=== PATIENT | male | born 1970 | race Caucasian/White ===

== ENCOUNTER 2016-06-30 13:04 | Inpatient (IN) | payer OTHER ==
[~2016-06-30] VITALS: Ht 177.8 cm; Wt 131.2 kg
--- NOTE | ~2016-06-30 | CST ---
Cardiac Perfusion Imaging Demographics Patient Name ANDIE Friedman JR Gender Male Patient Number [id number] Race Visit Number [id number] Ethnicity [employer] Room Number 423 Accession Number [id number] Height 70 inches Date of 1970 Weight 287 pounds Age 46 year(s) BSA 2.43 m Referring Physician Nighat Lopez MD BMI 41.18 kg/m Interpreting [facility] Date of study 07/01/2016 Physician King Bear Calvin MD Supervising MD/MLP Danelle NGO Technologist Sridevi Thorne MD Ordering Physician Nighat Lopez MD Stress Emma Meyers engine test cell technician Stress ECG Reading [facility] Nurse Kandy Verduzco Physician King Bear Michel The procedure was explained in detail to the patient. Risks, complications and alternative treatments were reviewed. Written consent was obtained. Medications Reviewed with Patient prior to Procedure. Procedure Procedure Type: Nuclear Stress Test:Pharmacological, Lexiscan Procedure Start time: 07/01/2016 08:00 Indications: Chest pain, Hyperlipidemia, Hypertension and Diabetes. Risk Factors The patient risk factors include:Current/Recent(w/in 1 year) tobacco use, hypercholesterolemia, treated hypertension, family history of premature CAD, diet treated diabetes mellitus and dyslipidemia. Conclusions Summary Perfusion Images: The overall quality of the study is good. Left ventricular cavity is noted to be normal on the stress and rest studies. There is no evidence of abnormal lung activity. The right ventricle is not visualized and cannot be assessed. Stress SPECT images and Rest SPECT images demonstrate homogenous tracer distribution throughout the myocardium except for a decrease in uptake in the area involving the inferior wall consistent with diaphragmatic attenuation. Gated SPECT imaging reveals normal myocardial thickening and wall motion. The left ventricular ejection fraction was calculated to be 56%. Impression ECG portion of stress test is clinically negative for ischemia by diagnostic criteria. Myocardial perfusion imaging is normal. The inferior wall matched defect is consistent with diaphragm attenuation. Overall left ventricular systolic function was normal without regional wall motion abnormalities. There are no previous studies for comparison. . Stress Protocols Resting ECG Normal sinus rhythm. Resting HR:71 bpm Resting BP:144/100 mmHg Stress Protocol:Pharmacologic Peak BP:144/100 mmHg Predicted HR: 175 bpm Test duration: 06:00 min Reason for termination:Infusion complete ECG Findings Normal sinus rhythm. Symptoms Shortness of breath. Symptoms resolved with rest. Complications Procedure complication: None. Stress Interpretation Appropriate hemodynamic response to Lexiscan. No significant ST-T wave changes with Lexiscan. ECG portion is negative for ischemia by diagnostic criteria. Imaging Results Summed scores - Summed stress score: 0 - Summed rest score: 0 - Summed difference score: 0 Stress ejection Ejection fraction:56 % EDV :143 ml ESV :63 ml Stroke volume :80 ml LV mass :149 gr Imaging Protocols Rest Stress Isotope:Tc99m Myoview IV Isotope: Tc99m Myoview IV Isotope dose:10.9 mCi Isotope dose:31.6 mCi Date:07/01/2016 06:30 Date:07/01/2016 08:00 Technique: SPECT Technique: Gated Supine SPECT Supine IV remains in place after procedure. Scan Time:45-60 minutes post Scan Time:45-60 minutes post injection injection Procedure Medications - Regadenoson (Lexiscan) 0.4 mg IV over 10-15 sec. I.V. 0.4 mg. Medications administered per verbal order and read back to physician prior to administration. Medical History Admission Data Admission date: 06/30/2016 Admission Time: 14:48 Hospital Status: Inpatient. Signatures
[2016-07-02] MEDS ORDERED: MULTIVITAMINS1 EAC1 PO (06:11)
[2016-07-02] MEDS ORDERED: ASPIRIN EC81 MG PO (06:11)
[2016-07-02] MEDS ORDERED: COREG DPS12.5 MG PO (06:11)
[2016-07-02] MEDS ORDERED: ZOCOR DPS40 MG PO (06:12)
[2016-07-02] MEDS ORDERED: PRILOSEC DPS20 MG PO (06:12)
[2016-07-02] MEDS ORDERED: AMLODIPINE BESYL5 MG PO (06:12)
--- NOTE | 2016-07-04 16:13 | DS ---
ADMIT: 06/30/2016 RM/LOC: 423 [facility] MR#: [id number] [address] [facility] [address] [place], [place] [address] RUBINA CHAVES [address] [place] [id number] Discharge Summary SEX: M AGE: 46 : 1970 ADMISSION DATE: 06/30/2016 DISCHARGE DATE: 07/01/2016 CONSULTATIONS: Dr. Mcclendon. PROCEDURES: Functional cardiac exam. Negative stress test. No evidence of inducible ischemia. DIAGNOSES: 1. Noncardiac chest pain, resolved. 2. Chronic kidney disease stage 4. 3. Dyslipidemia. 4. Hypertension. 5. Type 2 diabetes mellitus. 6. Morbid obesity. 7. Gastroesophageal reflux disease. REASON FOR ADMISSION: Please H and P. However briefly, admitted for chest pain. HOSPITAL COURSE: Admitted to the service of [facility] under the care of myself, Piyush Disla MD. Receives goal-directed therapy for chest pain. Receives Cardiology consultation for a functional evaluation which was unremarkable. He does have an ultrasound of his kidneys consistent with chronic kidney disease, likely secondary to hypertension and hyperlipidemia. Diabetes is actually at goal at 6.5. He declines any further intervention for his diabetes at this time. I offered him referral to group underwriter for management of his chronic kidney disease. He declines this as well. Offered him follow up. He wishes to follow up with [facility]. He thinks that he will consider seeing them. I do express to him the very important nature of his followup. He has kidney disease, he has got diabetes, he has got hypertension and likely does have coronary artery disease, however nothing significant noted on functional studies today. But, I do encourage him to have aggressive intervention for his disease as with a creatinine of approximately 3 at age 46 I do have real concerns for his longevity. He does express that he understands this and he will consider following up at [facility] as that is where he wishes to establish his care. He likes them and has read about them and that is what he wants. He does decline Nephrology, declines any intervention for his diabetes at this time. He does agree to go on a statin drug. I recommend that he does have followup laboratories in 6-8 weeks time to follow up his lipids as well as the tolerance of the statin. He will discharge to home. He will follow up with [facility] next available. Again, very strongly encouraged him that he needs to aggressively treat his disease. DISPOSITION: Home. DISCHARGE CONDITION: Stable. ADMIT: 06/30/2016 RM/LOC: 423 [facility] MR#: [id number] [address] [facility] [address] [place] [id number] [place] [address] Discharge Summary SEX: M AGE: 46 : 1970 DISCHARGE MEDICATIONS: See medication reconciliation, reviewed and accurate. DISCHARGE INSTRUCTIONS: Discharged to home. Declines followup in my clinic. He will follow up in [facility]. He declines nephrology referral. He will agree to start a statin drug but agrees that he must have followup laboratories. I discussed the plan with the patient, expressed understanding, was in agreement, and had no further questions. Thirty minutes spent on discharge activities of this patient. Piyush Disla MD/ reno JOB #: [id number] CC: Piyush Disla MD, Attending Physician Piyush Disla MD, Family Physician . [facility]
--- NOTE | 2016-07-04 16:13 | HP ---
ADMIT: 06/30/2016 RM/LOC: 423 [facility] MR#: [id number] ACC#: [id number] [address] [facility] [address] [place] [id number] [address] [place] [address] History and Physical SEX: M AGE: 46 : 1970 DATE OF SERVICE: CHIEF COMPLAINT: Chest pain. HISTORY OF PRESENT ILLNESS: He has been having chest pain for approximately one week. Worse today. Resolved with Maalox in the ER. Has a history of hypertension as well as does have a history of hyperlipidemia and diabetes. He is currently taking Coreg and amlodipine. He gets his care at [facility]. He is wishing to establish with [facility], however. He came to the ER with his . Did receive aspirin and appropriate interventions. Initial laboratories were negative. He has requested to be admitted for observation. Evaluated him at his bedside in room 8. He has no chest pain, shortness of breath, nausea, or vomiting. No abdominal pain. He does not drink, smoke, or do drugs. He does chew a bit. Positive family history for diabetes in the sister. Dad with hypertension as well as mom with diabetes and hypertension. No children. States he had a stress test in the past, however, not able to locate this. 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 PAST MEDICAL HISTORY: 1. Hypertension. 2. Hyperlipidemia. 3. Type 2 diabetes mellitus. MEDICATIONS: 1. Coreg. 2. Amlodipine. ALLERGIES: CODEINE. FAMILY HISTORY: Father, hypertension. Mother, hypertension and diabetes. Sister with diabetes. No children. SOCIAL HISTORY: He does not drink, smoke, or do drugs. 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 He does have a history of hypertension. He is somewhat noncompliant with his medications. He recently did obtain insurance and wishes to establish with a local [facility]. He also does chew tobacco, but he is overall pretty happy jesse. REVIEW OF SYSTEMS: Complete review of systems reviewed per HPI. PHYSICAL EXAMINATION: VITAL SIGNS: Blood pressure is 141/84, pulse is 79, respiratory rate is 18, and temperature is 97.3. He is on room air. GENERAL: Alert and oriented x3. No acute distress. HEENT: Normocephalic, atraumatic. Extraocular movements intact. Pupils equal, round. No nasal discharge. NECK: Supple. ADMIT: 06/30/2016 RM/LOC: 423 [facility] MR#: [id number] [address] [address] [facility] [place] [address] History and Physical SEX: M AGE: 46 : 1970 HEART: Regular rhythm and rate. LUNGS: Clear to auscultation bilaterally. ABDOMEN: Soft, nontender, and nondistended. EXTREMITIES: No clubbing, cyanosis, or edema. IMAGING: EKG, sinus rhythm, no acute ST-segment changes. LABORATORY DATA: Chest x-ray, normal chest. Hemoglobin is 13.3, white blood cells 10.5, and platelets 176. D-dimer 0.66. Sodium is 139, potassium 4.6, chloride is 108, bicarb is 20, BUN is 35, creatinine is 3.5, glucose is 85, calcium is 8.2, total bilirubin is 0.3, total protein is 7, albumin is 3.1, alkaline phosphatase is 98, AST is 45, ALT is 61, LDH is 135, and Mag is 1.6. ASSESSMENT: 1. Chest pain. 2. Hypertension. 3. Hyperlipidemia. 4. Hypomagnesemia. 5. Acute renal failure. We will go ahead and admit him to my medical service to an inpatient status. We will maintain him on telemetry. We will start him on some gentle or some IV fluid resuscitation for acute renal failure. Obtain a renal ultrasound to rule out an obstructive uropathy. Replace his magnesium. He was given aspirin. Maintain him on his Coreg and amlodipine and I will dose him a dose of simvastatin now. I will request Cardiology do a treadmill functional evaluation of him in the morning. I will obtain a fasting lipids as well as a hemoglobin A1c. I will place him on the subcu insulin with his history of diabetes. He will be maintained on SCDs and DAVON hose right now, and he will have trending cardiac enzymes and wishes to be a full code. I discussed the plan with the patient, expressed understanding with agreement, had no further questions. Piyush Disla MD/ martin JOB #: [id number] CC: Piyush Disla, Attending Physician Piyush Disla, Family Physician
--- NOTE | 2016-07-06 15:03 | ER ---
ADMIT: 06/30/2016 RM/LOC: 423 [facility] MR#: [id number] [address] [facility] [address] [place], [place] [address] RUBINA CHAVES [address] [place] [id number] Emergency Room Report SEX: M AGE: 46 : 1970 DATE: 06/30/2016 TIME: 1304 hours. Primary care is signed to Dr. Disla. Please refer to my T-sheet for complete H and P. HISTORY OF PRESENT ILLNESS: The patient is a 46-year-old, who comes with an hour and half ago severe chest pain while he was having lunch, 12/04, left side, did not radiate. He felt sweaty, short of breath, and nauseous. He felt very weak and came in for evaluation. He has a known history of renal insufficiency, high blood pressure, and diabetes. He does not have a primary, follows up just with Urgent Care. PHYSICAL EXAMINATION: VITAL SIGNS: Blood pressure 141/84, pulse 59, respirations 18, temperature 97.3, sat 98%. GENERAL: He is in no acute distress. HEENT: Grossly normal. LUNGS: Clear. HEART: Regular. CHEST: He does have almost a little reproducible chest wall pain on the left side. ABDOMEN: Soft. SKIN: No rash. EMERGENCY DEPARTMENT COURSE: His EKG was sinus rhythm, rate 97, no hyperacute changes. CBC was normal except of white count of 10.5, hemoglobin 13.3. Chemistries normal except for CO2 of 20, BUN 45, glucose 183, creatinine 3.5, which is similar to what it was in the past. Cardiac enzymes were negative. Magnesium 1.6. Lipase was normal. D-dimer is 0.66. He was given 4 aspirin, Maalox, and his pain was gone. He remained stable. I talked to Nighat, and we are going to admit him to the hospital. ASSESSMENT: 1. Chest pain, slightly atypical with multiple risk factors. 2. Renal insufficiency that seems stable from his last time here. 3. Diabetes. 4. Hypertension. PLAN: Admit to the hospital. Maldonado Olvera MD/ martin JOB #: [id number] CC: Piyush Disla MD, Attending Physician Piyush Disla MD, Family Physician
== END 2016-07-01 14:48 | disposition home or self-care (01) | DRG 313 ==
LOC: ER 13:04 → 4PCU 14:48
PROVIDERS: ADMIT Internal Medicine
DX: R07.89 Other chest pain (principal); E11.22 Type 2 diabetes mellitus with diabetic chronic kidney disease; N17.9 Acute kidney failure, unspecified; N18.4 Chronic kidney disease, stage 4 (severe); Z68.41 Body mass index [BMI] 40.0-44.9, adult; E83.42 Hypomagnesemia; E78.5 Hyperlipidemia, unspecified; F17.220 Nicotine dependence, chewing tobacco, uncomplicated; I12.9 Hypertensive chronic kidney disease with stage 1 through stage 4 chronic kidney disease, or unspecified chronic kidney disease; E66.01 Morbid (severe) obesity due to excess calories; K21.9 Gastro-esophageal reflux disease without esophagitis; Z91.14 Patient's other noncompliance with medication regimen

== ENCOUNTER 2016-09-30 22:59 | Inpatient (IN) | payer OTHER ==
[~2016-09-30] VITALS: Ht 177.8 cm; Wt 128.0 kg
[~2016-09-30 22:59] MED LIST: AMLODIPINE BESYL5 MG PO; ASPIRIN EC81 MG PO; COREG DPS12.5 MG PO; MULTIVITAMINS1 EAC1 PO; PRILOSEC DPS20 MG PO; ZOCOR DPS40 MG PO
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
--- NOTE | 2016-10-04 13:14 | ER ---
ADMIT: 10/01/2016 RM/LOC: 423 [facility] MR#: [id number] [address] [phone] RUBINA CHAVES [address] [place] [address] Emergency Room Report SEX: M AGE: 46 : 1970 DATE: 09/30/2016 Please refer to the main dictation for more information. The patient was signed off to me. The patient is a 46-year-old male with a past medical history of T6 compression fracture, chronic kidney disease, hyperlipidemia, diabetes, and hypertension, who came to the ER with chief complaint of increased pain in the posterior midline chest, which is in the same place as T6, for 1 day. The patient denied any recent new trauma. In the ER, the patient had temperature of 100.3, and then sepsis workup was started. The patient had white blood cell of 15,000 with a left shift. A chest x-ray was negative for any acute changes or pneumonia or infiltration. UA showed 5 white blood cells and 3 red blood cells. Troponin I was negative and lactic acid level was 0.8. The patient had elevated creatinine to 4.2, from 3.2 on June 2016, with increased BUN to 53 and potassium level was 4.7. In the followup temperature check, the patient was not febrile in the ER, also the mild tachycardia has been resolved. The patient in the ER received IV fluid 1 L normal saline and was started empirically on ceftriaxone 1 g IV. The patient was admitted for further followups and treatments, knowing that the CT scan of the chest and lumbar spine did not show any signs of osteomyelitis or infection, and did not show any new acute changes. The patient was admitted for acute kidney injury, thoracic compression fracture, upper back pain, and hyperpyrexia. Jeffrey Alonso MD/ martin JOB #: [id number] CC: Ulisses Moya MD, Attending Physician Ulisses Moya MD, Family Physician
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
[2016-10-09] MEDS ORDERED: DULOXETINE HCL30 MG PO (20:25)
[2016-10-09] MEDS ORDERED: LIPITOR DPS20 MG PO (20:26)
[2016-10-09] MEDS ORDERED: PRILOSEC DPS20 MG PO (20:26)
[2016-10-09] MEDS ORDERED: THERA1 EACH PO (20:27)
[2016-10-09] MEDS ORDERED: NORVASC DPS10 MG PO (20:27)
[2016-10-09] MEDS ORDERED: ASPIR 8181 MG PO (20:27)
[2016-10-09] MEDS ORDERED: COREG DPS12.5 MG PO (20:27)
[2016-10-09] MEDS ORDERED: AUGMENTIN 875-1 EACH PO (20:28)
[2016-10-09] MEDS ORDERED: DELTASONE DPS10 MG PO (20:28)
[2016-10-09] MEDS ORDERED: TYLENOL DPS325 MG PO (20:28)
[2016-10-09] MEDS ORDERED: SOD BICARB TAB650 MG PO (20:30)
[2016-10-09] MEDS ORDERED: ZYLOPRIM-DPS100 MG PO (20:30)
--- NOTE | 2016-12-07 21:11 | DS ---
ADMIT: 10/01/2016 RM/LOC: 423 [facility] MR#: [id number] [facility]#: [id number] 26[address] [facility] [address] [place] [phone] RUBINA CHAVES [address] [place] [address] Discharge Summary SEX: M AGE: 46 : 1970 ADMISSION DATE: 10/01/2016 DISCHARGE DATE: 10/09/2016 FINAL DIAGNOSES: 1. 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 2. Diffuse myalgias. 3. Second and 4th right toe cellulitis. 4. Acute on chronic kidney disease. 5. T9 compression fracture. 6. Volume overload. 7. Diabetes mellitus type 2. 8. Obesity. 9. Hypomagnesemia. 10.Hypertension. 11.Metabolic acidosis. REASON FOR ADMISSION: This is a 46-year-old, white male who came to the emergency room with severe worsening diffuse thoracic back pain, foot pain, multiple myalgias. He has a known T9 compression fracture. Pain has been persistent but it has gotten worse to the point where he cannot hardly get around. He developed vomiting and worsening renal function. Therefore, he is being admitted for further workup and stabilization. HOSPITAL COURSE: He was admitted on 10/01/2016, was started on IV morphine, a renal diet. Nephrology was consulted. When we did do an MRI of his thoracic and lumbar spine, Dr. Steel was consulted for a T9 compression fracture. He felt that there was nothing surgically that needed to be done. His magnesium was low, this was replaced IV. Sliding scale insulin was used for tight blood sugar control. Dr. Dailey did consult as well, and his creatinine slowly improved over several days. He initially was resistant to any sort of dialysis. We did add clindamycin. A Supportive Care consult was ordered as there was concern that if he did not agree to dialysis at some point in the future, that it would ultimately meet his demise. Physical Therapy was consulted. After a long discussion over several days with the patient and family member, he eventually did agree to hemodialysis if needed. His creatinine continued to improve. On 10/03 he was given Venofer IV. On 10/04 he remained afebrile, continued on IV antibiotics, and his toe cellulitis did improve. On 10/05 Dr. Dailey did add some sodium bicarbonate. We discontinued his telemetry. Rheumatology was consulted secondary to continued pain, elevated sedimentation rate, and CRP. 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 On 10/07, still in a lot of pain and Dr. Hu started him on Solu-Medrol and allopurinol. He slowly improved. Supportive Care signed off. On 10/08, had really no setbacks. Continued to improve a little bit. On 10/09 he had an okay night. He was in much less pain, and we felt that he was likely stable for discharge. DISCHARGE INSTRUCTIONS: 1. Aspirin 81 mg daily. 2. Coreg 12.5 mg b.i.d. ADMIT: 10/01/2016 RM/LOC: 423 [facility] MR#: [id number] [address] [place] [phone] RUBINA CHAVES [address] [place] [address] Discharge Summary SEX: M AGE: 46 : 1970 3. Cymbalta 30 mg daily. 4. Deltasone 30 mg daily. Taper down to 20 mg daily for 3 days, then 10 mg daily for 3 days, then 5 mg daily for 3 days, then off. 5. Lipitor 20 mg at bedtime. 6. Norvasc 10 mg daily. 7. Sodium bicarbonate 650 mg b.i.d. 8. Multivitamin daily. 9. Allopurinol 150 mg daily. 10.Tylenol 325 mg 2 tabs q.4 hours p.r.n. 11.Omeprazole 20 mg daily. 12.Augmentin 875 mg p.o. b.i.d. for 7 days. ADA diet. Check a BMP in one week. Follow up with Dr. Moya in one week. Follow up with Dr. Dailey and Dr. Hu per their wishes. Ulisses Moya MD/ hector JOB #: [id number] CC: Ulisses Moya MD, Attending Physician Ulisses Moya MD, Family Physician
== END 2016-10-09 12:50 | disposition home or self-care (01) | DRG 683 ==
LOC: ER 22:59 → 4PCU 10-01 03:01
PROVIDERS: ADMIT Family Medicine
DX: N17.9 Acute kidney failure, unspecified (principal); E44.0 Moderate protein-calorie malnutrition; E11.22 Type 2 diabetes mellitus with diabetic chronic kidney disease; E87.2 Acidosis; Z68.41 Body mass index [BMI] 40.0-44.9, adult; E11.42 Type 2 diabetes mellitus with diabetic polyneuropathy; M13.0 Polyarthritis, unspecified; S22.079G Unspecified fracture of T9-T10 vertebra, subsequent encounter for fracture with delayed healing; E78.5 Hyperlipidemia, unspecified; N18.4 Chronic kidney disease, stage 4 (severe); E66.01 Morbid (severe) obesity due to excess calories; M10.9 Gout, unspecified; F41.1 Generalized anxiety disorder; F31.9 Bipolar disorder, unspecified; I12.9 Hypertensive chronic kidney disease with stage 1 through stage 4 chronic kidney disease, or unspecified chronic kidney disease; E78.1 Pure hyperglyceridemia; M79.1 Myalgia; K59.00 Constipation, unspecified; L03.031 Cellulitis of right toe; E87.70 Fluid overload, unspecified; E83.42 Hypomagnesemia; Z87.891 Personal history of nicotine dependence; S22.049D Unspecified fracture of fourth thoracic vertebra, subsequent encounter for fracture with routine healing; S22.059D Unspecified fracture of T5-T6 vertebra, subsequent encounter for fracture with routine healing; S22.069D Unspecified fracture of T7-T8 vertebra, subsequent encounter for fracture with routine healing; Z81.1 Family history of alcohol abuse and dependence; Z82.49 Family history of ischemic heart disease and other diseases of the circulatory system

== ENCOUNTER 2016-10-21 04:25 | Emergency (ER) | payer OTHER ==
[~2016-10-21 04:25] MED LIST changes: +ASPIR 8181 MG PO; +AUGMENTIN 875-1 EACH PO; +DELTASONE DPS10 MG PO; +DULOXETINE HCL30 MG PO; +LIPITOR DPS20 MG PO; +NORVASC DPS10 MG PO; +SOD BICARB TAB650 MG PO; +THERA1 EACH PO; +TYLENOL DPS325 MG PO; +ZYLOPRIM-DPS100 MG PO
--- NOTE | 2016-10-24 19:05 | ER ---
ADMIT: 10/21/2016 RM/LOC: ER [facility] MR#: [id number] [address] [address] RUBINA CHAVES [address] [place] [id number] Emergency Room Report SEX: M AGE: 46 : 1970 DATE: 10/21/2016 The patient is a 46-year-old male with chronic kidney disease, hospitalized 1st of the month with creatinine high at 4.7, comes in today with persistent nausea and vomiting, ataxia, delirium. Concern is sodium is low again. Exam remarkable for nontoxic, afebrile male with stable vital signs. Normal neuro exam. Normal sodium and potassium. Creatinine down to 2.8, lactic 1.3, CRP 1.54, glucose 135, lipase 370, WBC 11.5, hemoglobin 11.6, troponin less than 0.015, BNP 88. UA; 2+ protein, glucose positive, 8 rbc's, otherwise negative. The patient given Zofran 8 mg IV push, no fluid IV, tolerated oral challenge well. Home with Zofran 8 mg ODT t.i.d. p.r.n., this medicine is not renally cleared. Follow up with Dr. Moya as needed. Frantz Nance MD/ modl JOB #: [id number] CC: Frantz Nance MD, Attending Physician Ulisses Moya MD, Family Physician Ulisses Moya MD
== END 2016-10-21 06:28 | disposition home or self-care (01) ==
LOC: ER 04:25
DX: R11.2 Nausea with vomiting, unspecified (principal); I13.0 Hypertensive heart and chronic kidney disease with heart failure and stage 1 through stage 4 chronic kidney disease, or unspecified chronic kidney disease; E11.22 Type 2 diabetes mellitus with diabetic chronic kidney disease; I50.9 Heart failure, unspecified; N18.9 Chronic kidney disease, unspecified; E78.5 Hyperlipidemia, unspecified; F31.9 Bipolar disorder, unspecified; F41.9 Anxiety disorder, unspecified; Z87.81 Personal history of (healed) traumatic fracture; Z88.3 Allergy status to other anti-infective agents; Z88.6 Allergy status to analgesic agent; Z90.49 Acquired absence of other specified parts of digestive tract; Z79.899 Other long term (current) drug therapy